=== PATIENT | male | born 1955 | race Caucasian/White ===

== ENCOUNTER 2016-11-13 15:07 | Emergency (ER) | payer BC ==
[~2016-11-13] VITALS: Ht 185.4 cm; Wt 109.1 kg
[~2016-11-13 15:07] MED LIST: NORCO 325 MG-51 TAB PO
[2016-11-13 16:03] LABS: BASO % 0.4 % (0.0-2.0); EOS # 0.3 (0.0-0.7); EOS % 3.7 % (0-4.0); GRAN # 4.8 (1.4-6.5); GRAN % 69.2 % (42.2-75.2); HEMOGLOBIN 12.4 g/dl (13.5-18.0); LYMPH # 1.2 (1.2-3.4); LYMPH % 17.3 % (20.0-51.0); MEAN CELL VOLUME 93 fl (80.0-100.0); MEAN CORPUSCULAR HEMOGLOBIN 32 pg (27.0-31.0); MEAN CORPUSCULAR HGB CONC 34 g/dl (33.0-37.0); MEAN PLATELET VOLUME 10.1 fl (7.4-10.4); MONO # 0.6 (0.1-0.6); MONO % 9.1 % (1.7-9.3); PLATELET COUNT 197 K/mm3 (130-400); REDCELL DISTRIBUTION WIDTH-CV 12.9 % (11.5-14.5); WHITE BLOOD COUNT 6.9 K/mm3 (4.8-10.8)
[2016-11-13 16:04] LABS: HEMATOCRIT 36.1 % (42.0-52.0)
[2016-11-13 16:08] LABS: ADJUSTED CALCIUM 9.2 mg/dL (8.4-10.2); ALANINE AMINOTRANSFERASE 42 U/L (21-72); ALBUMIN 3.6 gm/dL (3.5-5.0); ALKALINE PHOSPHATASE 59 U/L (50-136); ANION GAP 9 mmol/L (7-16); BILIRUBIN,TOTAL 0.6 mg/dL (0.0-1.0); BLOOD UREA NITROGEN 28 mg/dL (9-20); CALCIUM 8.9 mg/dL (8.4-10.2); CARBON DIOXIDE 27 mmol/L (22-30); CHLORIDE 104 mmol/L (98-107); CREATININE, serum 0.85 mg/dL (0.66-1.25); GLUCOSE 94 mg/dL (74-106); LIPASE 40 U/L (23-300); SODIUM 139 mmol/L (137-145); TOTAL PROTEIN 6.2 gm/dL (6.4-8.2)
[2016-11-13 16:20] LABS: B-TYPE NATRIURETIC PEPTIDE 132 pg/mL (0-125)
[2016-11-13 16:23] LABS: TROPONIN-I < 0.012 ng/mL (0.000-0.034)
[2016-11-13 20:17] VITALS: BP 117/79; PULSE 67
[2016-11-17 11:55] LABS: .METANEPHRINE <0.20 nmol/L (<0.50); .NORMETANEPH 0.99 nmol/L (<0.90)
== END 2016-11-13 20:18 | disposition home or self-care (01) ==
LOC: COL.ER 15:07
PROVIDERS: Emergency Medicine; Internal Medicine
DX: I16.0 Hypertensive urgency (principal); R07.9 Chest pain, unspecified; I45.10 Unspecified right bundle-branch block
CPT/HCPCS: J7030

== ENCOUNTER → 2018-04-10 | Outpatient (CLI) | payer BC | LOC: COL.RAD 10:50 | DX: J98.4 Other disorders of lung (principal); K76.89 Other specified diseases of liver | CPT/HCPCS: Q9967 ==